=== PATIENT | male | born 1950 | race Caucasian/White ===

== ENCOUNTER 2016-12-11 13:11 | Emergency (ER) | payer OTHER ==
--- NOTE | 2016-12-11 13:52 | CT ---
CT HEAD WITHOUT CONTRAST: Technique: Multiple axial tomograms were obtained through the head without IV enhancement. History: Right hand numbness. FINDINGS: The ventricles have normal size and position. There is no evidence of intracranial infarct, mass, o r hemorrhage. Sinuses and mastoids are well aerated. IMPRESSION: No evidence of acute abnormality. POS: [facility]
[2016-12-11 14:19] LABS: PTT 30.9 SEC (22.9-36.1); Prothrombin Time 13.9 SEC (12.0-14.7)
--- NOTE | 2016-12-11 14:24 | RAD ---
PORTABLE CHEST: History: Right hand numbness. FINDINGS: The lung rizzo are clear. There is no evidence of infiltrate or vascular congestion. Heart size i s normal. IMPRESSION: No acute lung process identified. POS: [facility]
[2016-12-11 14:28] LABS: #Eosinphils 0.2 thou/uL (0.0-0.7); #Lymphocytes 1.8 thou/uL (1.20-3.40); #Monocytes 0.6 thou/uL (0.11-0.59); #Neutrophils 3.4 thou/uL (1.40-6.50); %Basophils 0.8 % (0.0-1.0); %Eosinophils 3.7 % (0.0-10.0); %Lymphocytes 29.4 % (21.0-51.0); %Monocytes 10.4 % (0.0-10.0); %Neutrophils 55.8 % (42.0-75.0); Hemoglobin 13.1 g/dL (14.0-18.0); Mean Corpuscular HGB CONC 35.1 g/dL (32.0-36.0); Mean Corpuscular Hemoglobin 32.5 pg (27.0-31.0); Mean Corpuscular Volume 92.5 fl (80.0-94.0); Mean Platelet Volume 7.1 fL (7.4-10.4); Platelet Count 191 thou/uL (130-400); RBC Distribution Width 12.2 % (11.5-14.5); Red Blood Cell (RBC) Count 4.03 mill/uL (4.70-6.10)
[2016-12-11 14:31] LABS: ALT (SGPT) 9 U/L (0-55); AST (SGOT) 17 U/L (5-34); Alkaline Phosphatase 137 U/L (40-150); Anion Gap 16 mmol/L (10-20); BUN (Urea Nitrogen) 10 mg/dL (8.4-25.7); Bilirubin, Total 0.4 mg/dL (0.2-1.2); CK (CPK) 158 U/L (30-200); CKMB 4.2 ng/mL (0-6.6); Calc. Creatinine Clearance 0 mL/min (70-130); Calcium 9.3 mg/dL (7.8-10.44); Carbon Dioxide 25 mmol/L (23-31); Chloride 105 mmol/L (98-107); Estimated GFR-MDRD Greater than 90; Globulin 2.4 g/dL (2.4-3.5); Glucose 83 mg/dL (80-115); Magnesium 2.2 mg/dL (1.6-2.6); Protein, Total 6.4 g/dL (5.8-8.1); Sodium 142 mmol/L (136-145); Troponin I Less than 0.010 ng/mL (< 0.028)
--- NOTE | 2016-12-11 14:44 | CT ---
CT CERVICAL SPINE WITH CORONAL AND SAGITTAL REFORMATIONS: Date: 12/11/16 HISTORY: Right hand numbness. FINDINGS: There are mild degenerative changes in the cervical spine, most prominent at C3-4-5-6-7 levels. No f racture, subluxation, or bony destruction is seen. Multilevel central canal and neural foraminal janelle nosis is seen. There is suggestion of cord impingement at C3-4, C4-5, C5-6, and probably C6-7 levels . IMPRESSION: Cervical spondylosis with central and neural foraminal stenoses. Further evaluation with MRI would b e helpful. POS: [facility]
== END 2016-12-11 16:25 | disposition left against medical advice (07) ==
LOC: MADERS 13:11
DX: M48.02 Spinal stenosis, cervical region (principal); M21.339 Wrist drop, unspecified wrist
CPT/HCPCS: 70450; 71010; 72125; 80053; 82553; 83735; 83880; 84484; 85025; 85610; 85730; 93005; 94760